=== PATIENT | male | born 1980 | race Caucasian/White ===

== ENCOUNTER 2019-10-27 10:31 | Emergency (ER) | payer MEDICARE, MEDICAID ==
[~2019-10-27] VITALS: Ht 182.8 cm; Wt 128.4 kg
[~2019-10-27 10:31] MED LIST: AMOXICILLIN500 MG PO; DEPO TESTOS200 MG/ML IM; FIORICET 325 MG1 TAB PO; FLEXERIL5 MG PO; PRAVASTATIN SOD40 MG PO; SYNTHROID0.075 MG PO; ULTRAM50 MG PO; [UNRECOGNIZED DRUG - OTHER]
== END 2019-10-27 13:09 | disposition home or self-care (01) ==
LOC: ED 10:31
DX: S96.912A Strain of unspecified muscle and tendon at ankle and foot level, left foot, initial encounter (principal); Z88.6 Allergy status to analgesic agent; Z88.8 Allergy status to other drugs, medicaments and biological substances; Z88.1 Allergy status to other antibiotic agents; Z79.899 Other long term (current) drug therapy; X50.1XXA Overexertion from prolonged static or awkward postures, initial encounter; X50.0XXA Overexertion from strenuous movement or load, initial encounter; Y93.89 Activity, other specified; Y92.89 Other specified places as the place of occurrence of the external cause; Y99.8 Other external cause status